=== PATIENT | male | born 1940 | race Asian ===

== ENCOUNTER 2020-05-06 20:41 | Emergency (ER) | payer OTHER ==
[~2020-05-06] VITALS: Ht 188 cm; Wt 77.6 kg
[2020-05-06 21:17] LABS: PLATELET COUNT 257 K/uL (142-355)
[2020-05-06 21:35] LABS: POTASSIUM 3.5 mmol/L (3.6-5.2)
[2020-05-06 22:51] VITALS: BP 176/94; TEMP 98.2
[2020-05-07] MEDS ORDERED: ASPIRIN 81 LOW81 MG PO (03:00)
[2020-05-07] MEDS ORDERED: SUPER CALCIUM PO (03:10)
[2020-05-07] MEDS ORDERED: KP FOLIC ACID1 MG PO (03:12)
[2020-05-07] MEDS ORDERED: EUTHYROX25 MCG PO (03:21)
[2020-05-07] MEDS ORDERED: ATOR20TA2 PO (03:23)
[2020-05-07] MEDS ORDERED: MELATONIN1 TA1 PO (03:25)
[2020-05-07] MEDS ORDERED: NAMENDA5 MG PO ×2 (03:27→03:56)
[2020-05-07] MEDS ORDERED: AMLODIPINE BESYLATE PO (03:32)
[2020-05-07] MEDS ORDERED: VITAMIN C 500 M1 TAB PO (03:34)
[2020-05-07] MEDS ORDERED: VITAMIN D22000 UNIT PO (03:40)
[2020-05-07] MEDS ORDERED: VITAMIN D32000 UNI3 PO (03:42)
[2020-05-07] MEDS ORDERED: ZOLOFT25 MG PO (03:46)
[2020-05-07] MEDS ORDERED: HYDRALAZINE25 MG PO (03:52)
[2020-05-07] MEDS ORDERED: LORA0.5T17 PO (04:01)
[2020-05-07] MEDS ORDERED: DIVA250T2 PO (04:05)
[2020-05-07] MEDS ORDERED: HOUR PAIN PO (04:10)
== END 2020-05-06 22:52 | disposition other institution (70) ==
LOC: ED 20:41
PROVIDERS: Emergency Medicine
DX: F03.91 Unspecified dementia, unspecified severity, with behavioral disturbance (principal); Z11.59 Encounter for screening for other viral diseases; Z04.6 Encounter for general psychiatric examination, requested by authority
CPT/HCPCS: 80053; 85027; 87635; 93005; 99283; U0003

== ENCOUNTER 2020-05-21 17:02 | Emergency (ER) | payer OTHER ==
[~2020-05-21] VITALS: Ht 188 cm; Wt 78.0 kg
[~2020-05-21 17:02] MED LIST: AMLODIPINE BESYLATE PO; ASPIRIN 81 LOW81 MG PO; ATOR20TA2 PO; DIVA250T2 PO; EUTHYROX25 MCG PO; HOUR PAIN PO; HYDRALAZINE25 MG PO; KP FOLIC ACID1 MG PO; LORA0.5T17 PO; MELATONIN1 TA1 PO; NAMENDA5 MG PO; SUPER CALCIUM PO; VITAMIN C 500 M1 TAB PO; VITAMIN D22000 UNIT PO; VITAMIN D32000 UNI3 PO; ZOLOFT25 MG PO
[2020-05-21 17:46] LABS: PLATELET COUNT 149 K/uL (142-355)
[2020-05-21 18:00] LABS: PARTIAL THROMBOPLASTIN TIME 26.7 SECONDS (24.5-33.6)
[2020-05-21 18:02] LABS: POTASSIUM 3.6 mmol/L (3.6-5.2); SODIUM 150 mmol/L (136-145)
[2020-05-21 21:20] VITALS: BP 91/53; TEMP 93.5
[2020-05-22] MEDS ORDERED: DONE5TAB PO (07:06)
[2020-05-22] MEDS ORDERED: DIVA250T PO (07:06)
[2020-05-22] MEDS ORDERED: ESCI10TA PO (07:06)
[2020-05-22] MEDS ORDERED: MEMA5TAB PO (07:07)
== END 2020-05-21 21:23 | disposition short-term general hospital (02) ==
LOC: ED 17:02
PROC: 0T9B70Z Drainage of Bladder with Drainage Device, Via Natural or Artificial Opening (ICD-10-PCS; principal; 2020-05-21)
DX: T68.XXXA Hypothermia, initial encounter (principal); R41.82 Altered mental status, unspecified; E86.0 Dehydration; Z79.899 Other long term (current) drug therapy; Z51.81 Encounter for therapeutic drug level monitoring
CPT/HCPCS: 36415; 36600; 51702; 80053; 81000; 82805; 83735; 84484; 85027; 85610; 85730; 93005; 96360; 96375; 99285; J2310